=== PATIENT | male | born 1980 | race Hispanic/Latino ===

== ENCOUNTER 2017-12-06 18:31 | Emergency (ER) | payer SELFPAY | END 2017-12-06 19:02 | disposition home or self-care (01) | LOC: EDH 18:31 | DX: H10.9 Unspecified conjunctivitis (principal); I10 Essential (primary) hypertension ==

== ENCOUNTER 2018-06-30 16:53 | Emergency (ER) | payer SELFPAY ==
[2018-06-30 17:34] LABS: RAPID GROUP A STREP NEGATIVE (NEGATIVE)
[2018-06-30 17:41] LABS: BASOPHILS % (AUTO) 0.6 % (0.0-5.0); EOSINOPHILS % (AUTO) 2.9 % (0.0-8.0); HEMATOCRIT 52.1 % (42-54); LYMPHOCYTES % (AUTO) 33.3 % (21.0-51.0); MEAN CORPUSCULAR HEMOGLOBIN 31.7 pg (27.0-33.0); MEAN CORPUSCULAR HGB CONC 34.3 g/dL (32.0-36.0); MEAN CORPUSCULAR VOLUME 92.3 fL (79-99); MONOCYTES % (AUTO) 7.9 % (3.0-13.0); NEUTROPHILS % (AUTO) 55.3 % (40.0-77.0); PLATELET COUNT (AUTO) 197 K/uL (130-400); RED BLOOD CELL COUNT(AUTO) 5.64 MIL/uL (4.50-6.20); RED CELL DISTRIBUTION WIDTH 12.5 % (11.0-15.5); WHITE BLOOD COUNT (AUTO) 7.3 K/uL (4.8-10.8)
[2018-06-30] MEDS ORDERED: LIDOCAINE HCL-MPF 1% 2ML VIAL ONE (18:20)
[2018-06-30] MEDS ORDERED: CEFTRIAXONE SODIUM 1 GM ONE (18:20)
== END 2018-06-30 18:48 | disposition home or self-care (01) ==
LOC: EDH 16:53
DX: J18.9 Pneumonia, unspecified organism (principal); R05 Cough; I10 Essential (primary) hypertension
CPT/HCPCS: 36415; 71046; 84484; 85025; 87804 ×2; 87880; 93005; 96372; 99285; J0696; J3490

== ENCOUNTER 2018-11-10 19:57 | Emergency (ER) | payer OTHER | END 2018-11-10 20:28 | disposition home or self-care (01) | LOC: EDH 19:57 | DX: J06.9 Acute upper respiratory infection, unspecified (principal); I10 Essential (primary) hypertension | CPT/HCPCS: 99281 ==

== ENCOUNTER 2018-12-08 14:03 | Emergency (ER) | payer OTHER | END 2018-12-08 14:39 | disposition home or self-care (01) | LOC: EDH 14:03 | DX: S83.91XA Sprain of unspecified site of right knee, initial encounter (principal); I10 Essential (primary) hypertension; Z72.0 Tobacco use; Y35.891A Legal intervention involving other specified means, law enforcement official injured, initial encounter; Y93.39 Activity, other involving climbing, rappelling and jumping off; Y92.89 Other specified places as the place of occurrence of the external cause; Y99.8 Other external cause status ==